=== PATIENT | female | born 1960 | race Caucasian/White ===

== ENCOUNTER → 2020-06-29 12:54 | Outpatient (CLI) | payer OTHER, SELFPAY ==
[2020-06-29] MEDS: COVID-19 VACC #1, MRNA(MOD) 100 MCG/0.5 ML VIAL IM (13:03)
== END ==
PROVIDERS: Visit Provider Internal Medicine
DX: Z23 Encounter for immunization (principal)
CPT/HCPCS: 0011A; 91301

== ENCOUNTER → 2020-07-27 13:05 | Outpatient (CLI) | payer OTHER, SELFPAY ==
[2020-07-27] MEDS: COVID-19 VACC #2, MRNA(MOD) 100 MCG/0.5 ML VIAL IM (13:32)
== END ==
PROVIDERS: Visit Provider Internal Medicine
DX: Z23 Encounter for immunization (principal)
CPT/HCPCS: 0012A; 91301

== ENCOUNTER → 2024-05-28 10:20 | Outpatient (CLI) | payer BC, SELFPAY | PROVIDERS: Referring Provider Physician Assistant Surgical; Visit Provider Physician Assistant Surgical | DX: M54.50 Low back pain, unspecified (principal) | CPT/HCPCS: 87086 ==